=== PATIENT | male | born 1935 | race African-American/Black ===

== ENCOUNTER 2019-03-19 13:10 | Inpatient (IN) | payer OTHER ==
[~2019-03-19] VITALS: Ht 177.8 cm; Wt 69.0 kg
--- NOTE | ~2019-03-19 | EEG ---
[facility] [address] [place] [address] ELECTROENCEPHALOGRAM Name: MARTY SPENCER Room #: 202-P ADM IN M.R.#: [id number] ������������������ Admission: 03/19/19 ������������������ Attend Phys: Janet Guzman Discharge: ������������������ Date of : 31 Report #: [id number] ����������������������������������������������������������������� [id number] THIS REPORT FOR: //name// CC: Nikunj Leon DATE OF SERVICE: 03/21/2019 INTERPRETATION: This patient is being evaluated for altered mental status. EEG is being done to further evaluate that. EEG is masked by a lot of muscle artifact. EEG is virtually uninterpretable. The best I can tell, the background activity is about 7-8 Hz and 30 microvolts. The patient appeared to be drowsy during small portion of this EEG and that is associated with bilateral slowing. Photic stimulation was unremarkable. No active epileptiform activity was noticed during this record. IMPRESSION: This EEG is virtually uninterpretable. A lot of artifact is present. EEG can be repeated when the patient is more cooperative. I do not see any epileptiform activity and cortical activity is present. Thank you very much for this referral. ���������������������������������������� ���������������������������������������� By: ��������������������������������������������� [id number] Gregor Fan MD /nt
[2019-03-19 13:10] VITALS: BP 156/68
[2019-03-19 13:50] LABS: MCH 29.9 pg (26.0-34.0); MCHC 30.5 g/dL (28.0-37.0); MCV 98.1 fL (80.0-100.0); PLATELET COUNT 180 thou/uL (150-400); RBC 4.69 mil/uL (4.50-6.00); RDW 17.7 % (10.5-14.5)
[2019-03-19 14:00] LABS: CALCIUM 9.4 mg/dL (8.5-10.1); CREATININE 7.3 mg/dL (0.7-1.3); POTASSIUM 4.6 mmol/L (3.5-5.1)
[2019-03-19 14:07] LABS: ALBUMIN 2.7 g/dL (3.4-5.0); DIRECT BILIRUBIN 0.2 mg/dL (<0.1-0.3); TOTAL BILIRUBIN 0.4 mg/dL (<0.1-1.0); TOTAL PROTEIN 7.3 g/dL (6.4-8.2)
[2019-03-19 14:20] LABS: ABSOLUTE NEUTROPHILS 3.6 thou/uL (1.4-8.2); ANISOCYTOSIS 1+; MACROCYTES 1+
[2019-03-19] MEDS ORDERED: ARTIFICIAL TEA1 EACH OPHTHALMIC (15:07)
[2019-03-19] MEDS ORDERED: ASPIR 8181 MG PO (15:08)
[2019-03-19] MEDS ORDERED: NITROGLYCERIN0.4 MG SUBLING (15:08)
[2019-03-19] MEDS ORDERED: IRON325 PO (15:08)
[2019-03-19] MEDS ORDERED: VITAMIN D2000 UNIT PO (15:08)
[2019-03-19] MEDS ORDERED: MIDODRINE HCL 55 M1 PO (15:08)
[2019-03-19] MEDS ORDERED: MEGESTROL400 MG/11 PO (15:08)
[2019-03-19] MEDS ORDERED: CARVEDILOL3.125 MG PO (15:09)
[2019-03-19] MEDS ORDERED: RENAL VITAMIN0.8 MG PO (15:09)
[2019-03-19] MEDS ORDERED: HEPARIN 5,5000 UNIT1 SUBQ (15:09)
[2019-03-19] MEDS ORDERED: GAS RELIEF80 MG PO (15:10)
[2019-03-19] MEDS ORDERED: NUTRITIONAL DR237 ML PO (15:10)
[2019-03-19] MEDS ORDERED: PROTONIX40 M1 PO (15:10)
[2019-03-19] MEDS ORDERED: PROSOURCE PLUS887 ML PO (15:11)
[2019-03-19] MEDS ORDERED: ONDANSETRON HCL4 M2 PO (15:11)
[2019-03-19] MEDS ORDERED: COLACE100 MG PO (15:11)
[2019-03-19] MEDS ORDERED: MIRALAX17 GM PO (15:11)
[2019-03-19] MEDS ORDERED: TYLENOL325 MG PO (15:11)
[2019-03-19] MEDS ORDERED: VENTOLIN HFA 1818 GM INH (15:12)
[2019-03-19] MEDS ORDERED: MELATONIN5 M1 PO (15:12)
[2019-03-19 17:14] VITALS: BP 145/60
[2019-03-19 17:47] VITALS: BP 146/71
[2019-03-19 19:14] VITALS: BP 144/57
[2019-03-20 04:49] VITALS: BP 124/53
--- NOTE | 2019-03-20 06:34 | NUR ---
PT WAS SEEN BY DR. VINES AT BEDSIDE. MD ORDERED BLOOD GLUCOSE STAT. 114. MD MADE AWARE. NNO AT THIS TIME.
--- NOTE | 2019-03-20 08:12 | EKG ---
[place] [address] [facility] [place] [address] ELECTROCARDIOGRAM REPORT Name: MARTY SPENCER Room #: 450-P ADM IN M.R.#: [id number] ������������������ Admission: 03/19/19 ������������������ Attend Phys: Janet Leon Discharge: ������������������ Date of : 33 Report #: [id number] ����������������������������������������������������������������� [id number] THIS REPORT FOR: //name// [facility] ED Test Date: 2019-03-19 Test Time: 13:13:08 Pat Name: MARTY SPENCER Department: Room: 450 Gender: M Airport Traffic Controller: Antonio DOUGHERTY RN : 1935 Requested By: Evi Cardenas Order Number: [id number] MD: oTan Barbour Measurements Intervals [place] Rate: 79 P: 47 KS: 190 QRS: 34 QRSD: 114 T: 3 QT: 422 QTc: 484 Interpretive Statements Sinus rhythm Probable left ventricular hypertrophy Borderline prolonged QT interval No previous ECG available for comparison Electronically Signed On 03-20-2019 8:12:18 CDT by Toan Barbour [email or web address] ��������������������������������������������� <ELECTRONICALLY SIGNED> ���������������������������������������� By: Toan Barbour MD, [facility] ��������������������������������������������� 03/20/19 0812 1313 1313 Toan Barbour MD, FACC /EPI
[2019-03-20 08:45] VITALS: BP 133/55
--- NOTE | 2019-03-20 13:19 | NUR ---
PATIENTS JOSEFINA CONTACTED, EDUCATED ON HUSBANDS CURRENT STATUS. PATIENT IS NOT BREATHING WELL, UNRESPONSIVE, AND ONLY FROWNS WITH A STERNAL RUB. SPOUSE VERBALIZED THAT SHE WILL BE HERE SHORTLY.
[2019-03-20 13:45] LABS: BE(vivo) -16.2 mmol/L (-2 to +3); HCO3 19.2 mmol/L (22.0-26.0); PO2 189.9 mmHg (80.0-100.0); sO2 98.1 % (92.0-98.0)
--- NOTE | 2019-03-20 13:45 | NUR ---
Nutrition: Pt admitted with AMS, SOB, Hypoglycemia. Seen for low chandni score. Pt unarousable at this time. Slept through breakfast and lunch. Diet now NPO. No wt hx to assess, but BMI within normal range. Will assess within next few days as pt becomes more alert for intake/wt information.
[2019-03-20 13:46] LABS: PCO2 103.8 mmHg (35.0-45.0); pH 6.884 (7.360-7.450)
--- NOTE | 2019-03-20 14:27 | NUR ---
PT ADMITTED RELATED TO AMS, SOB, HYPOGLYCEMIA. CM REVIEWED CHART AND SPOKE WITH CARE TEAM. CM ATTEMPTED TO MEET WITH PT AT BEDSIDE THIS DAY BUT PT DIDN'T ROUSE. CM ATTEMPTED PC TO PT'S SPOUSE BUT SHE DIDN'T ANSWER. RECORDS INDICATED THAT PT RESIDES AT [facility]. PT DOES DIALYSIS TRS. CARE TEAM INDICATED THAT PT IS GOING TO BE TRANSFERING TO CCU THIS DAY. NURSING NOTIFIED PT'S SPOUSE. CM TO FOLLOW INDICATED WITH DC PLANNING.
[2019-03-20 16:31] LABS: BE(vivo) -10.5 mmol/L (-2 to +3); HCO3 18.8 mmol/L (22.0-26.0); PCO2 55.5 mmHg (35.0-45.0); PO2 168.4 mmHg (80.0-100.0); pH 7.147 (7.360-7.450); sO2 98.6 % (92.0-98.0)
--- NOTE | 2019-03-20 17:51 | NUR ---
PT TRANSFERED FROM [facility]. REPORT GIVEN BY MAC URBINA. PT VERY LETHAGIC. DIALYSIS STARTED. CRITICAL ABGS CALLED IN TO DR. GOLDSTEIN. NO NEW ORDERS. UPDATED ON PT PROGRESS. WILL CONTINUE TO MONITOR.
--- NOTE | 2019-03-20 19:31 | NUR ---
ASSUMED CARE OF PT AT APPROX 0700. PT IS LETHARGIC, HARD TO ARROUSE, WILL BRIEFLY ARROUSE WITH STERNAL RUB. VSS, MORNING PROGRESSES PT BECOMES MORE DIFFICULT TO ARROUSE, BG CHECKED OFTEN AND REPORTED TO MD, ORDERS IMPLEMENTED. WITH NO RESOLUTION FROM ORDERS PT CONTINUED TO BE HARDER TO ARROUSE WITH NO ARROUSEL FROM STERNAL RUB. VSS STABLE. ABG ORDERED CRITICAL RESULTS GIVEN TO MD. PLACED PT ON BIPAP AND TRANSFERED TO CCU. CALLED REPORT TO CIARA KIRBY. PT TRANSPORTED BY AID AND RT IN BED. FAMILY NOTIFIED AND AT BEDSIDE AT TIME OF TRANFER.
[2019-03-20 20:13] VITALS: BP 146/87
--- NOTE | 2019-03-21 04:24 | NUR ---
ASSUMED CARE AT 1900. PT ALERT AND ORIENTED X 1. UNABLE TO MAKE ALL HIS NEEDS KNOWN. PT MORE ALERT DURING THE NIGHT ASKING FOR HIS BROTHER AND HIS . PT UNDERSTANDS HE IS AT THE HOSPITAL. DIALYSIS YESTERDAY EVENING. NO FLUIDS PLULLED OFF. PT ON BIPAP. LOW BLOOS SUGARS DURING THE NIGHT, D50 12.5 PUSHED X2. NO SIGN OF DISCOMFORT. WILL CONTINUE TO MONITOR AND FOLLOW PLAN OF CARE.
[2019-03-21 04:52] VITALS: BP 160/46
[2019-03-21 08:05] VITALS: BP 141/49
[2019-03-21 09:07] LABS: HEP B SURFACE Ab(ANTI-HBS Non Reactive (()); HEPATITIS B SURFACE AG Negative (Negative)
--- NOTE | 2019-03-21 10:42 | NUR ---
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 Sp with and [facility]. Patient was at [facility] rehab prior to admission. Plan for dc from [facility] to home next week. Plan at dc from [facility] to [facility] rehab unit. Patient doesnt have a BIPAP at [facility]. He dializes t,th,sat, at [facility].
[2019-03-21 11:37] VITALS: BP 137/56
--- NOTE | 2019-03-21 11:52 | NUR ---
PATIENT BLOOD GLUCOSE 68. REPORTED TO PATIENT'S NURSEHILARIA. INSTRUCTED TO PUSH D50. WILL CONTINUE TO MONITOR BLOOD GLUCOSE.
--- NOTE | 2019-03-21 13:43 | NUR ---
[place] [facility] [place] HVAC SERVICES PROFESSIONAL FAXED PRESCRIPTION
--- NOTE | 2019-03-21 16:31 | NUR ---
FAXED SCRIPT AND PROG. NOTES FOR BIPAP TO [facility] [place] SPOKE WITH VIN AND SHE RECEIVED INFO. DCP TO FOLLOW.
--- NOTE | 2019-03-21 16:58 | NUR ---
ASSUMED PATIENT CARE AT 0830. ALERT TO SELF, CONFUSED AND LETHARGOC. OFF BIPAP AT 1000. TOLERATED ON RA ONLY TWO HOURS. DESAT TO 85% WHEN BACK TO SLEEP. PUT BACK TO BIPAP AT 1400. POOR APPETITE. MINIMA STOOL IN OSTOMY. PATIENT BLOOD SURGER ON THE LOW SIDE THAT REQUESTED INFUSTION D50% IV. ASSISTED PATIENT Q2H TURN. SLOWLY TOWARDS POC GOALS.
[2019-03-21 19:45] VITALS: BP 137/58
[2019-03-22 00:07] VITALS: BP 144/73
[2019-03-22 04:39] LABS: HEMATOCRIT 39.6 % (42.0-52.0); HEMOGLOBIN 12.3 gm/dL (14.0-18.0); MCHC 31.1 g/dL (28.0-37.0); MCV 96.3 fL (80.0-100.0); RBC 4.11 mil/uL (4.50-6.00); RDW 17.2 % (10.5-14.5); WBC 4.8 thou/uL (4.0-11.0)
[2019-03-22 04:44] LABS: ALBUMIN 2.2 g/dL (3.4-5.0); CALCIUM 7.9 mg/dL (8.5-10.1); PHOSPHORUS 3.7 mg/dL (2.5-4.9); POTASSIUM 3.5 mmol/L (3.5-5.1)
[2019-03-22 04:51] LABS: CREATININE 5.8 mg/dL (0.7-1.3)
[2019-03-22 05:05] VITALS: BP 151/65
--- NOTE | 2019-03-22 05:30 | NUR ---
PATIENT IS PROGRESSING IN HIS CARE PLAN. VITAL SIGNS STABLE WITH PATIENT HAVING NO COMPLAINTS OF PAIN OR NAUSEA. PATIENT IS ORIENTED BUT FORGETFUL AND IS ABLE TO EFFECTIVELY COMMUNICATE NEEDS. BREATHING STABLE EVIDENCED BY READINGS ON CONTINUOUS SATURATION MONITOR. PATIENT WAS ABLE TO TOLERATE BIPAP FOR A GOOD PORTION OF THE NIGHT BEFORE PULLING EQUIPMENT OFF. HE DID STATE THAT HE "SLEPT WELL." NURSE CLOSELY MONITORED BLOOD SUGARS THROUGHOUT SHIFT AFTER PUSHING HALF AMPULE OF D50 EARLY IN SHIFT. MORNING LAB SHOWS BS IN 90'S ON CONTINUOUS D10. ADEQUATE OUTPUT THROUGH AJCKSON CATHETER WITH MINIMAL OUTPUT THOUGH LOTS OF GAS THROUGH COLOSTOMY. PATIENT TURNED FREQUENTLY WITH SKIN CARE A PRIORITY. PROBABLE DIALYSIS SCHEDULED FOR TODAY. CONTINUE PLAN OF CARE.
[2019-03-22 07:25] VITALS: BP 164/55
[2019-03-22 11:30] VITALS: BP 118/62
--- NOTE | 2019-03-22 12:36 | NUR ---
Nutrition followup completed
[2019-03-22 15:40] VITALS: BP 113/53
--- NOTE | 2019-03-22 16:02 | NUR ---
Possible dc back to snf soon. PT/OT jacques requested. Pt had dialysis today. [facility] updated per the dc digital media planner. They will have a bipap for him if dc ready tomorrow.
--- NOTE | 2019-03-22 19:48 | NUR ---
ASSUMED CARE OF PATIENT AT 0700. PATIENT IS A&O X 4. PATIENT UNDERWENT HEMODIALYSIS THIS A.M. WITH 2L TAKEN OFF. PATIENT HAS A COLOSTOMY IN PLACE, WHICH FILLED WITH FLATUS 3X. NO URINE OUTPUT TODAY. BLOOD SUGAR CHECKED Q 4 AND REMAINED ABOVE 80. PATIENT DID EAT LUNCH WELL. RIGHT AC IV INFILTRATED, RIGHT ARM EDEMA, IV REMOVED AND ELEVATED ON A PILLOW. NO REDNESS OR PAIN PRESENT. PATIENT TO CONTINUE WITH POC.
[2019-03-22 20:16] VITALS: BP 132/54
--- NOTE | 2019-03-23 04:38 | NUR ---
ASSUMED PT CARE AT 1900. VSS. PT A&0X4 WAS COMPLAING OF PAIN ALL OVER AT THE START OF THE SHIFT. TYLENOL GIVEN; APPEARS TO RESOLVE PAIN. PT 02 SAT IS AT 100 WITH 02 NC AT 2L. BIPAP OVERNIGHT, TOLERATED WELL. UPON PT CARE ASSUMPTION, FSBS WAS 65. APPLE JUICE AND ORANGE JUICE GIVEN WITH 2 CRACKERS, D10 RESTARTED AT 50ML/HR. WHEN FSBS WAS RECHECKED AFTER 30 MINUTES, BLOOD SUGAR CAME BACK UP TO 73. PT STILL Q4 BOOD SUGARS. 2+ EDEMA NOTED IN RIGHT UPPER ARM WHICH APPEARS RED AND PUFFY POST PREVIOUS IV INFILTRATION; ARM REMAINS ELEVATED. BED BATH GIVEN TO PT LAST NIGHT, PT HAS DRY SKIN. PT SLEPT WELL ALL NIGHT. NO FURTHER COMPLAINTS. WILL CONTINUE TO MONITOR.
[2019-03-23 05:28] VITALS: BP 142/56
[2019-03-23 06:40] LABS: BE(vivo) 5.3 mmol/L (-2 to +3); HCO3 35.6 mmol/L (22.0-26.0); PO2 167.6 mmHg (80.0-100.0); sO2 98.8 % (92.0-98.0)
[2019-03-23 06:41] LABS: PCO2 84.9 mmHg (35.0-45.0)
[2019-03-23 07:25] VITALS: BP 169/66
[2019-03-23 11:20] VITALS: BP 143/54
[2019-03-23] MEDS ORDERED: MSL20MG/ML PO (11:20)
--- NOTE | 2019-03-23 15:00 | NUR ---
Case discussed with the care team. Hospice recommended and the attending has visited with the pt and spouse at bedside. Followup visit made with the pt's and sister in law and the pt's niece Rmaila via phone to discuss options. The pt is a DNR and the outside the hospital dnr is on the chart. They are all in agreement to stopping dialysis. Therapy attempted to work with the pt and he is too weak to tolerate sitting up. Pt was very lethargic this am. Using bipap at night. [facility] updated and they are not able to offer a ltc bed for medicaid pending and the pt's is not able to pay 30 days upfront ($7000.00) to try and return there. The pt's indicates that she struggles to take care of herself and does not feel he can be cared for at home. hospice house eval requested as the pt may qualify for inpt there under his insurance benefits. Orders obtained. Family agreeable. Hospice liason to eval in the morning for transfer to the hospice house and to visit with the pt's family. Nursing to update renal. [facility] form on the chart along with the DNR form should the pt be accepted to go to the hospice house this weekend. BELINDA updated.
--- NOTE | 2019-03-23 15:49 | NUR ---
IF PT DISCHARGES TO [facility] FAX DC ORDERS/SUMMARY TO [phone] AND CALL REPORT TO [phone] AND CALL AND SET UP AMBULANCE TRANSPORT [phone] AND FAX AMBULANCE FORM TO [phone].
--- NOTE | 2019-03-23 17:20 | HC ---
[facility] [place] [address] [address] CONSULTATION Name: MARTY SPENCER Room #: 202-P [facility] IN M.R.#: [id number] Admission: 03/19/19 ������������������ Attend Phys: Janet Leon Discharge: ������������������ Date of : 33 Report #: [id number] THIS REPORT FOR: //name// CC: Nikunj Leon REFERRING PHYSICIAN: Dr. Leon. REASON FOR REFERRAL: Respiratory failure. HISTORY OF PRESENT ILLNESS: The patient is an 83-year-old -[place] male who was brought to the ED from a residential due to acute mental status change. He was found to be hypoxic, hypercapnic. A pulmonary consultation was requested. History is not able to obtain as the patient is somewhat somnolent. According to history, the patient has a history of end-stage renal disease, undergoing hemodialysis. He apparently gets his care at the [facility]. He has been at the longterm facility following abdominal surgery. He was diagnosed of bowel perforation, undergoing colostomy approximately 6 weeks prior to presentation. PAST MEDICAL HISTORY: As mentioned above including past history of myocardial infarction. Otherwise, incomplete. MEDICATIONS: Lists are reviewed. It is in the MAR. FAMILY HISTORY: Noncontributory. SOCIAL HISTORY: Unknown. REVIEW OF SYSTEMS: Deferred as the patient is not able to provide much history. PHYSICAL EXAMINATION: GENERAL: He is semi-somnolent, in no distress. VITAL SIGNS: Temperature is 99 degrees Fahrenheit, pulse is 86, respiratory rate is 21, blood pressure 150/65 mmHg, saturation 100%. HEENT: Normocephalic, atraumatic. NECK: Supple, without lymphadenopathy or thyromegaly. CHEST: Breath sounds are fair due to poor effort. No obvious rales or wheezes. CARDIOVASCULAR: Normal S1, S2. No murmurs or gallop. There is no JVD. There is no carotid bruit. Pulses are 2+/4+ bilaterally. ABDOMEN: Soft, nontender, no organomegaly or masses felt. GENITOURINARY: Deferred. RECTAL: Deferred. EXTREMITIES: There is no edema, cyanosis or clubbing. [facility] [address] [place] [address] CONSULTATION Name: MARTY SPENCER Room #: 202-P [facility] IN M.R.#: [id number] Admission: 03/19/19 ������������������ Attend Phys: Janet Leon Discharge: ������������������ Date of : 33 Report #: [id number] NEUROLOGIC: Again is somewhat somnolent, difficult to arouse. He also appears weak along with emaciation. LABORATORY DATA: Portable chest x-ray showed no obvious infiltrates. There is increase gas pattern in the colon. CT head showed no acute process. EKG shows sinus rhythm without any acute ischemic changes. Arterial blood gas on admission revealed pH 6.88, pCO2 of 103, pO2 of 189. Followup arterial blood gas revealed pH 7.14, pCO2 of 55, pO2 168 on FiO2 40%. Electrolytes are reviewed. Creatinine is 7.3. Potassium is 4.6, bicarbonate is 22. WBC 6000, hemoglobin 14.0. IMPRESSION: 1. Acute hypercapnic hypoxic respiratory failure in this 83-year-old -[place] male. This is likely related to hypoventilation. The etiology of this is central versus progressive muscle weakness and debility. 2. Encephalopathy due to hypercarbia. 3. End-stage renal disease. 4. Generalized debility, weakness along with malnutrition. 5. Coronary artery disease. 6. Hypertension. 7. Hypoglycemia, being addressed. 8. Medical directive, he is a DNR. RECOMMENDATIONS: We will continue bypass as tolerated. Wean O2 for saturation 90%. Bronchodilators p.r.n. Deep venous thrombosis and GI prophylaxis recommended. Overall, outlook is poor given advanced age, severe comorbid conditions along with profound debility and weakness and malnutrition. Agree with DNR status. Hospice may be more appropriate in this patient. Thank you for this consultation. ��������������������������������������������� <ELECTRONICALLY SIGNED> ���������������������������������������� By: Kirby Amado MD ��������������������������������������������� 03/23/19 1720 1118 1932 Kirby Amado MD /nt
--- NOTE | 2019-03-23 18:24 | NUR ---
PT CARE ASSUMED APPROX 0700. PT DROWSY AND ASLEEP MOST OF SHIFT BUT ORIENTED X4. VSS. BS WNL. PT WEANED TO RA THIS SHIFT AND TOLERATING. WILL RESUME BIPAP TONIGHT. PT AND FAMILY DISCUSSED HOSPICE OPTIONS WITH DR GOLDSTEIN AND COURT OPERATIONS CLERK THIS SHIFT. PT AND FAMILY HAVE DECIDED TO WITHDRAWL CARE AND STOP HD. DR CORTEZ AWARE AND HD CANCELLED. TURNING PT Q2 HOURS AND PRN. POOR APPETITE. PRESSURE BOOTS ADDED TO POC. D10 IVF REMAINS TO POC. LEFT ARM PIV INFILTRATED EARLIER THIS SHIFT. REPLACED PER IV TEAM. TO LEFT ARM AGAIN. NO DISTRESS NOTED.
[2019-03-23 19:27] VITALS: BP 140/61
[2019-03-24 04:00] VITALS: BP 125/52
--- NOTE | 2019-03-24 05:27 | NUR ---
ASSUMED PT CARE T 1900. VSS. PT A&OX4. PT HAD A R UPPER ARM IV PLACED BY IV TEAM EARLIER IN THE DAY, R ARM WAS SWOLLEN UPON ASSESSMENT SO D10 WAS STOPPED. RAZ NOTIFIED, WAS INSTRUCTED TO CHECK FSBS Q1-2 HOURS AND MANAGE NEEDED WITH SNACKS OR GLUCAGON SINCE PT IS ABLE TO EAT. ADDITIONALLY, MULTIPLE ATTEMPTS TO PLACE A NEW IV WERE MADE BUT TO NO AVAIL. PT'S BLOOD SUGAR WAS STABLE OVERNIGHT, MOST OF WHICH WERE WITHIN NORMAL LIMITS DESPITE THE D10 NOT RUNNING. PT IS STABLE, STATES HE IS FEELING BETTER. HE HAD HIS BIPAP ON ONLY FOR A COUPLE HOURS AND REFUSED IT. PARAFO BOOTS CURRENTLY ON PATIENT, HE REFUSED HIS SCDs THIS AM. WILL CONTINUE TO MONITOR PER POC.
--- NOTE | 2019-03-24 07:23 | HC ---
[facility] [place] [address] CONSULTATION Name: MARTY SPENCER Room #: 202-P [facility] IN M.R.#: [id number] Admission: 03/19/19 ������������������ Attend Phys: Janet Leon Discharge: ������������������ Date of : 33 Report #: [id number] THIS REPORT FOR: //name// CC: Nikunj Leon DATE OF SERVICE: 03/20/2019 REASON FOR CONSULTATION: End-stage renal disease. REASON FOR PRESENTATION: Mental status changes. HISTORY OF PRESENT ILLNESS: The patient was brought from his nursing facility due to acute mental status changes. He is not able to provide me with any details. Currently, the patient has been there for some time. It is mentioned that he usually is conversant and able to communicate. Nurses found him to be in an acute mental status changes and sent him to [facility] for further evaluation. He is a dialysis patient who is maintained on hemodialysis every Tuesday, and Tuesday. REVIEW OF SYSTEMS: Unobtainable given the patient's mental status. PAST SURGICAL HISTORY: Left IJ tunnel catheter. FAMILY HISTORY: Unobtainable given the patient's mental status. MEDICATIONS: Unobtainable given the patient's mental status. ALLERGIES: None. SOCIAL HISTORY: Resides in a nursing facility. No reported drug or alcohol abuse. REVIEW OF SYSTEMS: Unobtainable given the patient's mental status. PHYSICAL EXAMINATION: GENERAL: The patient was oriented to place, time, and person. VITAL SIGNS: Blood pressure was 130/70. He was afebrile. HEAD AND NECK: No jugular venous distension. Left IJ catheter. CHEST: No crackles. CARDIOVASCULAR: No rub. ABDOMEN: Soft, nontender. LOWER EXTREMITIES: No edema. LABORATORY DATA: Reviewed. Sodium was 136, potassium was 4.6, BUN was 32, creatinine was 7.3. Blood sugar was 58 on arrival; however, it improved to 146 [facility] [address] [place] [address] CONSULTATION Name: MARTY SPENCER Room #: 202-P ADM IN [facility].#: [id number] Admission: 03/19/19 ������������������ Attend Phys: Janet Leon Discharge: ������������������ Date of : 33 Report #: [id number] upon evaluation in the ER. IMPRESSION AND PLAN: 1. End-stage renal disease. 2. Acute mental status changes. 3. Unknown medical history. 4. We will arrange for the patient to have his usual hemodialysis every Tuesday, and Tuesday. 5. Currently the primary team is investigating the source for the acute mental status changes and I will defer the further management to the primary team. 6. We will reach out to the family to try to obtain more information about the patient history. The patient was evaluated early in the morning of 03/20/2019. ��������������������������������������������� <ELECTRONICALLY SIGNED> ���������������������������������������� By: Colleen Villagomez MD ��������������������������������������������� 03/24/19 0723 1753 05 Colleen Villagomez MD /khushi
--- NOTE | 2019-03-24 07:23 | HC ---
[facility] [place] [address] CONSULTATION Name: MARTY SPENCER Room #: 202-P ADM IN M.R.#: [id number] Admission: 03/19/19 ������������������ Attend Phys: Janet Leon Discharge: ������������������ Date of : 33 Report #: [id number] THIS REPORT FOR: //name// CC: Nikunj Leon REASON FOR CONSULTATION: End-stage renal disease. HISTORY OF PRESENT ILLNESS: The patient was evaluated earlier this morning. He is not able to provide me with any history. He is a dialysis patient, who was brought from his facility for acute mental status changes. Apparently, the patient has a normal baseline; however, he was found to have an acute mental status changes in his nursing facility and was sent to be further evaluated by our hospital. I really do not have any details regarding the patient's history. I am not really sure how long the patient has been on dialysis. The only thing I could figure out is that the patient is on dialysis at the [facility] every Tuesday, and Tuesday. I was consulted to manage his end-stage renal disease. PAST MEDICAL HISTORY: End-stage renal disease. Other past medical history, not obtainable. REVIEW OF SYSTEMS: Unobtainable given the patient's mental status. FAMILY HISTORY: Unobtainable given the patient's mental status. PAST SURGICAL HISTORY: Left IJ catheter. Dictation Ends Here ��������������������������������������������� <ELECTRONICALLY SIGNED> ���������������������������������������� By: Colleen Villagomez MD ��������������������������������������������� 03/24/19 0723 1747 0541 Colleen Villagomez MD /khushi
[2019-03-24 07:40] VITALS: BP 125/70
[2019-03-24 11:15] VITALS: BP 149/56
[2019-03-24 15:15] VITALS: BP 152/68
--- NOTE | 2019-03-24 16:41 | NUR ---
ASSUMED CARE OF PT AT 0700. PT WAS A&OX4, ABLE TO MAKE NEEDS KNOWN. PT VITALS WERE WITHIN NORMAL LIMITS EXCEPT SYSTOLIC BLOOD PRESSURE IN 140-150. PT HYPOGLYCEMIC AND GIVEN FREQUENT SNACKS (FOCUSED ON PROTIEN WHEN POSSIBLE) AND ONE TIME GLYCOGON IM. PT HAD PAIN WITH N2RBOLE AND COMPLAINED OF PAIN IN LOWER EXTREMITIES THAT WAS PARTIALLY MANAGED WITH REST AND TYLENOL. HOSPICE PRELIMINARY SCHOOL PSYCHOLOGIST CAME BY AND STATED THAT PT DID NOT MEET REQUIREMENTS FOR HOSPICE BUT WILL CHECK BACK TUESDAY.
[2019-03-24 18:55] VITALS: BP 160/60
[2019-03-25 04:00] VITALS: BP 149/63
[2019-03-25 07:10] VITALS: BP 164/83
[2019-03-25 11:30] VITALS: BP 160/61
--- NOTE | 2019-03-25 15:46 | NUR ---
ASSUMED CARE OF PT AT 0700. PT A&OX4, BEDREST WITH Q2 TURNS. PT DRINKING NUTRITIONAL SUPPLEMENT AND BLOOD SUGARS STAYING WITHIN NORMAL LIMITS. PT HAD ABDOMINAL PAIN THIS AFTERNOON THAT WAS RELEIVED WITH REST AND TYLENOL. MIRALAX GIVEN FOR CONSTIPATION. PT'S COLOSTOMY BAG CHANGED TODAY. JACKSON CATHETER PLACED FOR COMFORT MEASURES. VITALS AND HEART RATE/RHYTHM WITHIN NORMAL LIMITS. WILL CONT WITH POC.
[2019-03-25 16:00] VITALS: BP 164/76
[2019-03-25 19:15] VITALS: BP 148/87
--- NOTE | 2019-03-26 02:44 | NUR ---
ASSESSMENT DOCUMENTED.PT RESTING IN NO ACUTE DISTRESS.C/O ABD PAIN REQUESTING TO HAVE STOOL SOFTENER.PT BELEIVES HE IS CONSTIPATED EVEN THOUGH HE HAS LIQUID STOOL IN HIS COLOSTOMY BAG.MIRALAX GIVEN PER DR'S ORDERS ALONG WITH TYLENOL.PT VOICED RELIEF.DENIES NAUSEA.BOWELS SOUND PRESENT IN ALL QUADS.JACKSON WAS REMOVED SINCE PT WAS C/O PAIN FROM IT.NO OTHER CONCERNS VOICED AT THIS TIME.WILL CONT TO MONITOR PER POC.
[2019-03-26 03:10] VITALS: BP 143/90
[2019-03-26 07:25] VITALS: BP 144/66
--- NOTE | 2019-03-26 10:43 | NUR ---
Followup: noted pt likely transfer to hospice house. Will defer further nutrition assessment unless consulted.
[2019-03-26 11:40] VITALS: BP 106/70
[2019-03-26 11:45] VITALS: BP 129/55
[2019-03-26 16:15] VITALS: BP 140/72
--- NOTE | 2019-03-26 16:41 | NUR ---
[facility] eval[facility] patient for hospice house and not appropriate at this time. They report patient may be reevaled in am post pain medication to determine if symptom management or need for house. Updated with plan for Hospice to eval in am.
--- NOTE | 2019-03-26 18:16 | NUR ---
VSSREMAINS SINUS ARRHYTNMIA 70-90, BP 120-144/66, ALERT AND ORIENTED, BLOOD SUGAR RANGE TODAY 63-129, APPETITE FAIR TODAY, FEW BITES OF MEAL, DRINKING ENSURE, STILL WITH ACTIVE COLOSTOMY LIQUID YELLOW BROWN STOOL AND 2 EPISODES, MUCUS SOFT STOOL DROM RECTUM. PT HAVING SPASMODIC RECTAL PAIN WHEN STOOLING THROUGH RECTUM. PAIN RELIEVED WITH PO BENTYL AND NOW MS 15 MG PO. WILL CONTIUE TO MONITER AND CARE FOR PTPER PLAN OF CARE
[2019-03-26 19:47] VITALS: BP 146/74
--- NOTE | 2019-03-27 02:14 | NUR ---
ASSESSMENT DOCUMENTED.PT RESTING IN NO DISTRESS AT THIS TIME. VSS.C/O RECTAL SPASMATIC PAIN AND ABD PAIN THAT WAS CONTROLLED WITH PAIN MEDS.PT HAD AN EPISODE OF BOWELS INCONTINENT THAT ARE LIQUID VIA RECTUM.PERICARE PROVIDED.BARRIER CREAM TO MARIE-AREA.COLOSTOMY CARE COMPLETED.PT TURNED AND REPOSITIONED Q2H IN BED.POC IS TO HAVE HOSPICE EVAL TODAY AND MAYBE DISCHARGE WITH HOSPICE.WILL CONT TO MONITOR PER POC
[2019-03-27 05:05] VITALS: BP 129/67
[2019-03-27 07:20] VITALS: BP 140/69
[2019-03-27 11:10] VITALS: BP 153/77
--- NOTE | 2019-03-27 12:37 | NUR ---
ASSUMED CARE AT SHIFT CHANGE, MARTY IS ALERT AND ORIENTED TO SELF AND SITUATION. MEDICATED FOR PAIN AND NAUSEA NEEDED. S/B DR PLUNKETT, AND HOSPICE NURSE AND HE IS QUALIFIED TO GO HOSPICE HOUSE. REPOERT CALLED TO RECIEVING RN AND WAITING FOR TRNANSPORTATION. FAMILY WAS AT BEDSIDE THIS MORNING. AND WILL CONTINUE WITH POC.
--- NOTE | 2019-03-27 13:48 | NUR ---
PT ACCEPTED TO HOSPICE HOUSE AND WILL DISCHARGE TODAY. FAXED DC ORDERS/SUMMARY TO FACILITY SPOKE WITH KOFI IN ADM SHE RECEIVED DC ORDERS. FAMILY NOTIFIED PER OF DISCHARGE AND TIME OF TRANSPORT. ARRANGED [id number]. VIA AMBULANCE ([facility]) FOR 1500 UNIT NOTIFIED AND CHART COPY PER US. RN TO CALL REPORT TO [phone]
--- NOTE | 2019-03-27 13:57 | NUR ---
hospice reevaled and patient appropritate for hospice house. Nice present and discussed with Hospice liason. CM callled and alerted patient appropriate for hospice house. FD for 1500 at request of Hospice house. Orders faxed. Outside DNR completed. RN with number for report. notified of dc timeframe no further needs
--- NOTE | 2019-03-28 12:38 | NUR ---
ALVARO received call from ALVARO Blackburn at the [facility] ([phone]) requesting info on pt's discharge. Bere requesting last day of dialysis. ALVARO reviewed chart. Last dialysis was on 03/22. ALVARO provided update and notified of pt discharging to [facility] on 03/27. No additional SW needs identified at this time, but is available to assist should needs arise.
== END 2019-03-27 15:00 | disposition hospice, inpatient (51) | DRG 640 ==
LOC: ER 13:10 → EROBS 15:59 → 4W 15:59 → 2N 15:59 → 4W 17:55 → 2N 03-20 15:10 → ENTRNSPT 03-20 15:10 → 2N 03-20 15:10 → DELTRNSPT 03-20 15:14 → 2N 03-27 15:00
PROVIDERS: Emergency Medicine; Hospitalist; Internal Medicine Pulmonary Disease; ADMIT Hospitalist
PROC: 5A09357 Assistance with Respiratory Ventilation, Less than 24 Consecutive Hours, Continuous Positive Airway Pressure (ICD-10-PCS; principal; 2019-03-20)
PROC: 5A1D70Z Performance of Urinary Filtration, Intermittent, Less than 6 Hours Per Day (ICD-10-PCS; principal; 2019-03-20)
PROC: 5A09357 Assistance with Respiratory Ventilation, Less than 24 Consecutive Hours, Continuous Positive Airway Pressure (ICD-10-PCS; 2019-03-21)
PROC: 5A09357 Assistance with Respiratory Ventilation, Less than 24 Consecutive Hours, Continuous Positive Airway Pressure (ICD-10-PCS; 2019-03-22)
PROC: 5A1D70Z Performance of Urinary Filtration, Intermittent, Less than 6 Hours Per Day (ICD-10-PCS; 2019-03-22)
PROC: 5A09357 Assistance with Respiratory Ventilation, Less than 24 Consecutive Hours, Continuous Positive Airway Pressure (ICD-10-PCS; 2019-03-23)
DX: E16.2 Hypoglycemia, unspecified (principal); G93.41 Metabolic encephalopathy; N18.6 End stage renal disease; J96.01 Acute respiratory failure with hypoxia; J96.02 Acute respiratory failure with hypercapnia; E46 Unspecified protein-calorie malnutrition; I12.0 Hypertensive chronic kidney disease with stage 5 chronic kidney disease or end stage renal disease; Z66 Do not resuscitate; I25.10 Atherosclerotic heart disease of native coronary artery without angina pectoris; D63.8 Anemia in other chronic diseases classified elsewhere; K21.9 Gastro-esophageal reflux disease without esophagitis; I95.9 Hypotension, unspecified; K59.00 Constipation, unspecified; Z99.2 Dependence on renal dialysis; I25.2 Old myocardial infarction; Z88.2 Allergy status to sulfonamides; Z88.8 Allergy status to other drugs, medicaments and biological substances; Z68.21 Body mass index [BMI] 21.0-21.9, adult; Z79.82 Long term (current) use of aspirin; Z79.899 Other long term (current) drug therapy
CPT/HCPCS: 10040; 10081; 32100